=== PATIENT | male | born 1975 | race Caucasian/White ===

== ENCOUNTER 2021-05-01 12:12 | Outpatient (REF) | payer OTHER, SELFPAY | END 2021-05-01 12:13 | disposition home or self-care (01) | LOC: HO.LAB 12:12 | PROVIDERS: Visit Provider Internal Medicine | DX: Z20.822 Contact with and (suspected) exposure to COVID-19 (principal) | CPT/HCPCS: C9803; U0003; U0005 ==

== ENCOUNTER 2023-02-13 08:47 | Outpatient (AMB) | payer OTHER, SELFPAY ==
--- NOTE | 2023-02-13 08:57 | A.OFFVIS_ITS ---
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 States he has been having back pain (T-spine to L-spine) since November 08 2022. 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 Seen at [facility] the following where an MRI was done and was told he has O.A and 5 pinch nerves in his back. States he has constant radiating pain down his leg especially with prolong sitting. States he is pending a call from therapy to schedule appointment with [facility]. 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 He prefers to stand due to his back pain. Reviewed notes from - Now pain is mid lower back, goes to right side to thigh and groin. Feels like burning sensation of inner thigh. Feels numb on groin area. Occasionally goes to knee, and sometimes numbness to big toe. Constant throughout the day. Has not noticed foot drop. Feels slight weakness on right thigh, feels like it will give out. Poor balance/stability. Treatment done so far: NSAIDs, pain medications therapy - Had one evaluation of PT - pending referral/call. This is a WC. Off work currently, out until 03/03/23. Was following podiatry Dr. Bhardwaj for right foot pain, for bone spur, pending surgery. This is a separate issue. 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 Although he appeared very uncomfortable. He preferred to stand up due to pain while seated. Patient was appropriately conversant and oriented. Good historian. MSK: No specific abnormalities found on inspection of the spine and all extremities. Diffusely tender on right SI joint and right lumbar paraspinals. No tenderness over GT. No tenderness over spinous processes.. Lumbar ROM was full despite pain. Bilateral hip, knee and ankle ROM WNL. No ligamentous laxity or crepitance. No increased effusion. Positive slump sit under right. FABERE test deferred due to pain. Give way weakness 4/5 on right lower extremity due to pain. No increased tone noted. Neurological: Neurologic examination of the upper and lower extremities was nonfocal with intact sensation, muscle stretch reflexes and without focal motor deficits except for give-way weakness under right lower extremity and question right footdrop (difficulty extending right big toe as compared to left but with pain). Menchaca?s negative bilaterally. Babinski was down going bilaterally. Clonus was negative. Gait is antalgic without loss of balance. 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 Co uld be from acute disc herniation. I agree with starting physical therapy. We would need to get the results of his MRI to confirm any disc herniation and/or level of nerve root impingement. He may benefit from injection which I explained would most likely be under pain management. He had some concerns about being diabetic but says his diabetes is well controlled. He will get the MRI results from [facility] and have it faxed loss. The soon as I see the MRI results, I will confirm what level of epidural injection I recommend, to be done under pain management. For now continue off work. Will re-evaluate at the end of the month if he can return to work or not. Hopefully by then, injection has been done. Assessment and plan discussed with patient, and patient was agreeable. All questions were answered thoroughly. Nona Huff MD, COLLETTE Board Certified, [place] [employer] and Rehabilitation (ABPMR) Board Certified, [place] [employer] Electro[employer]ostic [employer] (ABEM) Total of 45 minutes spent today including chart review, results review, history taking, physical examination, discussion of assessment and plan, and coordination of care. As of 02/14/23, we have not received fax of previous MRI report. Staff called patient and he said he's getting new lumbar MRI next week. He was advised to bring us a CD of the report. I will update referral to pain management (for level of epidural) once we receive new MRI. 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
[2023-02-13 09:09] VITALS: BMI 28.3
== END 2023-02-13 09:30 | disposition home or self-care (01) ==
PROVIDERS: PCP Internal Medicine; Visit Provider Physical Medicine & Rehabilitation
DX: M51.36 Other intervertebral disc degeneration, lumbar region (principal); M51.26 Other intervertebral disc displacement, lumbar region; M54.16 Radiculopathy, lumbar region
CPT/HCPCS: 99204

== ENCOUNTER → 2023-02-13 08:47 | Outpatient (BNVA) | payer OTHER, SELFPAY | PROVIDERS: PCP Internal Medicine; Visit Provider Physical Medicine & Rehabilitation ==

== ENCOUNTER 2023-02-27 11:09 | Outpatient (AMB) | payer OTHER, SELFPAY ==
--- NOTE | 2023-02-27 11:28 | MHC.OFFVIS ---
Intake Vital Signs 02/27/23 11:29 Height 5 ft 10 in Weight 197 lb BMI 28.3 Intake Visit Reasons: OV-WC-Back pain-Pain management referral Intake Note: Garrett 47 yr old mahin presents today to discuss work restriction. 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 He is pending appt with pain management. Joiners Supervisor Required: Yes Allergies penicillin V Allergy (Unknown, Verified 02/27/23 11:37) other Medication List - Last Reconciled 02/27/23 by Nona Huff MD albuterol sulfate 90 mcg/actuation (Ventolin HFA) 2 puffs inhalation Q4-6H PRN atorvastatin 40 mg PO DAILY cyclobenzaprine 10 mg PO TID dulaglutide (Trulicity) 0.75 mg subcut QWEEK fluticasone propionate 110 mcg/actuation (Flovent HFA) 2 puffs inhalation BID glipizide ER 10 mg PO DAILY metformin 1,000 mg PO BID methocarbamol 750 mg PO TID naproxen 500 mg PO BID oxycodone 5 mg PO TID PRN HPI HPI Comments History of Present Illness Details He appears more comfortable today, able to sit for longer period. Describes pain as discomfort and burning, same distribution down to the right thigh and knee. He had a new MRI done in [place]. Reported a right L4-5 disc protrusion. I independently reviewed the films and there is a small on disc herniation. He also was seen by Dr. Sherman in [place], I believe who is a pain anesthesiologist. He has not done any injections. I have referred him to our Pain Management but still awaiting scheduled for epidural injection. Treatment done so far: NSAIDs, pain medications therapy - ongoing This is a WC. Off work currently, out until 03/03/23. Was following podiatry Dr. Bhardwaj for right foot pain, for bone spur, pending surgery. This is a separate issue. 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 Appeared more comfortable today. Patient was appropriately conversant and oriented. Good historian. MSK: No specific abnormalities found on inspection of the spine and all extremities. Not as tender today. Lumbar ROM was full despite pain. Bilateral hip, knee and ankle ROM WNL. No ligamentous laxity or crepitance. No increased effusion. Positive slump sit still positive on the right. FABERE test negative. 4+/5 bilateral lower extremity. Neurological: 4+/5 bilateral lower extremity strength. 1+ DTRs bilateral knees and ankles. Menchaca?s negative bilaterally. Babinski was down going bilaterally. Clonus was negative. Gait is improved, nonantalgic without loss of balance. Results Reviewed Results Reviewed: Ordering Physician: Mirlande Rayo Date of Service: 02/01/23 Procedure(s): CT lumbar spine wo IV con Accession Number(s): [id number] cc: Mirlande Rayo; Ute Wood PA-C~ EXAMINATION: CT LUMBAR SPINE WITHOUT CONTRAST CLINICAL INFORMATION: Acute on chronic low back pain. COMPARISON: None TECHNIQUE: Helical non-contrast CT images were obtained through the lumbar spine without contrast. Multiplanar reformats were rendered and reviewed. This CT examination was performed using dose optimization techniques as appropriate, variously including the following: *Automated exposure control *Adjustment of mA and/or kV according to patient size (this includes techniques or standardized protocols for targeted exams where dose is matched to indication/reason for exam; i.e. extremities or head) *Use of iterative reconstruction technique DLP: 451 mGy-cm FINDINGS: The lumbar vertebral bodies maintain normal heights and alignment. There is mild disc height loss at L5-S1. No fracture is seen. Multiple calculi are seen within the bilateral kidneys. There is no hydronephrosis. Minimal atheromatous changes are seen within the abdominal aorta. SPINAL LEVELS: L1-L2: No posterior disc abnormality. No spinal canal or neural foraminal stenosis. L2-L3: Mild disc bulging. No spinal canal or neural foraminal stenosis. L3-L4: Disc bulging. No spinal canal or neural foraminal stenosis. L4-L5: Disc bulging with mild narrowing of the left neural foramen. No spinal canal stenosis. L5-S1: Disc bulging with left annular calcification resulting in mild to moderate left neural foraminal stenosis. Mild right neural foraminal stenosis. No spinal canal stenosis. CT/CT lumbar spine wo IV con IMPRESSION: 1. No lumbar spine fracture or malalignment. Mild degenerative spondylosis without significant narrowing of the spinal canal. Neural foraminal stenosis appears mild to moderate on the left at L5-S1. 2. Incidentally noted bilateral nonobstructing renal calculi. 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 It does seem to be getting better with physical therapy. Still waiting for scheduling of epidural injection under pain management. He says he can now tolerate up to 20 minutes of sitting, 1 hour of standing and 45 minutes of walking. But he does not think he can do repetitive bending that is required at work. I have agreed to write him a work note for out of work for another 4 weeks or until injection done. Our goal is to get him back to work safely. Assessment and plan discussed with patient, and patient was agreeable. All questions were answered thoroughly. Total of 35 spent today including chart review, results review, history taking, physical examination, discussion of assessment and plan, and coordination of care. 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
[2023-02-27 11:29] VITALS: BMI 28.3
== END 2023-02-27 11:57 | disposition home or self-care (01) ==
PROVIDERS: PCP Internal Medicine; Visit Provider Physical Medicine & Rehabilitation
DX: M51.36 Other intervertebral disc degeneration, lumbar region (principal); M51.26 Other intervertebral disc displacement, lumbar region; M54.16 Radiculopathy, lumbar region; Z04.3 Encounter for examination and observation following other accident
CPT/HCPCS: 99214

== ENCOUNTER → 2023-02-27 11:09 | Outpatient (BNVA) | payer OTHER, SELFPAY | PROVIDERS: PCP Internal Medicine; Visit Provider Physical Medicine & Rehabilitation | DX: M51.36 Other intervertebral disc degeneration, lumbar region (principal); M51.26 Other intervertebral disc displacement, lumbar region; M54.16 Radiculopathy, lumbar region | CPT/HCPCS: 99212 ==

== ENCOUNTER 2023-04-29 06:08 | Outpatient (REF) | payer OTHER, SELFPAY | END 2023-04-29 06:09 | disposition home or self-care (01) | LOC: CF 06:08 | PROVIDERS: Visit Provider Anesthesiology | DX: Z13.89 Encounter for screening for other disorder (principal) ==

== ENCOUNTER 2025-02-28 12:44 | Outpatient (AMB) | payer OTHER, SELFPAY ==
--- NOTE | 2025-02-28 13:38 | MHC.AMNUTRGE ---
VS Expanded 02/28/25 13:39 03/08/25 18:09 Height 5 ft 10 in 5 ft 10 in Weight 188 lb 14.978 oz 189 lb BMI 27.1 27.1 Intake Visit Reasons: G1LK-oxarsgmal Allergies penicillin V Allergy (Unknown, Verified 02/27/23 11:37) other Nutrition Presentation Details: Pt presents for MNT for T2DM food frequency fruits: 0-1/d vex/wk fish: 0-1/wk dairy> 3/d beverages: water, juice, diet beverages Reports lack of meal planning a1c at 9% on November, Pt did not bring glucometer to this appt HFG-Epmxnyo-Hu.Jeor Equation Height: 5 ft 10 in Weight: 189 lb Resting Metabolic Rate: 1736.52 Calculated Activity Level: Sedentary Calories Needed to Maintain Weight: 3.82 Diagnosis Nutrition problem #1: food nutri know defi As related to (etiology) #1: diagnosis As evidenced by (sign/symptom) #1: knowledge deficit of diet and elevated HgbA1c PFSH Social History Current occupational status: employed 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 Assessment & Plan Assessment & Plan (1) Type 2 diabetes mellitus: Code(s): E11.9 - Type 2 diabetes mellitus without complications Category: Medical Plan: current wt: 86 kg (02/26 ) est kcal needs as per MSJ: 2100 est protein needs as per 1 g/kg BW: 90 est fluid needs as per 30 ml/kg BW: 2600 Recommended fiber > 12 g /day and gradually increase up to 25-28 g /day or as tolerated Rec sodium intake : less than 2300 mg/dl Nutrition topics discussed : Reviewed (R), Pt verbalized understanding (V) , not applicable (N/A) R, : Healthy Plate Method Concept: R, : Carbohydrates: food sources of carbohydrates, relationship of carbohydrates to blood glucose, fatty liver GI health. Recommended total amount of carbohydrates per meals and snack. Differences between simple carbohydrates and complex carbohydrates R, V, N/A: Lean protein foods including vegan , vegetarian sources of protein. Benefits of protein (including but not limited to healing, nutritional value , benefits in weight loss, glucose control R, V, N/A: Fats : Source of fats, benefits of fats. Difference between saturated and unsaturated fats. Saturated fats and its contribution to inflammation R, V, N/A: Fiber: food sources and role of fiber in the diet (including but not limited to its role as a prebiotic, benefits in constipation, role in IBS , role in glucose control and cholesterol level) R, : Hydration: role of hydration and prevention of dehydration or over hydration. Foods and water content. R, V, N/A: Vitamins and Minerals in foods and supplements R, V, N/A: Interpreting food labels, including serving size, macronutrients, vitamins, minerals, allergens, ingredient list , % daily value Patient Instructions: Monitor blood sugar fasting and 2 hours after a meal work on reducing total carb per meal to less than 90 g following healthy plate method and less than 20 g carb a snack , limit to 2 a day Choose no added sugar foods and have water with meals and snacks Coding Level of Care Code Nutr Indiv Intake (08186) Diagnoses Type 2 diabetes mellitus E11.9 Time Spent (min) 30
[2025-02-28 13:39] VITALS: BMI 27.1
--- OUTSIDE RECORDS SUMMARY | 2025-02-28 16:09 | XMS_ITS | Clinical Summary ---
Author Organization [facility] Address [address] [place] [phone] Phone Care Team Providers Care Executive Director Sheltered Workshop Name Role Phone Floyd Mark MD Primary Care Provider Allergies Active Allergy Reactions Criticality Noted Date Comments Aspirin 04/19/2014 Reaction not mentioned Penicillins Rash 03/16/2014 Shellfish Containing Products 04/19/2014 Reaction not mentioned Medications blood sugar diagnostic (FreeStyle Lite Strips) test strip USE TO CHECK BLOOD SUGAR 3 TIMES DAILY 024 Active blood-glucose meter,continuous (FreeStyle Yuan 3 Chicken) misc 1 Device by Does not apply route See Admin Instructions. Active blood-glucose sensor (FreeStyle Yuan 3 Plus Sensor) device 1 Applicator by Does not apply route every 14 days. Active sertraline (ZOLOFT) 50 mg tablet Take 1 Tablet by mouth daily. Active pen needle, diabetic (Insupen Pen Needle) 32 gauge x 5/32 needle 1 Stick by Does not apply route daily. Active FREESTYLE LANCETS MISC Use to test blood sugars TID Active atorvastatin (LIPITOR) 40 mg tablet Take 1 tablet (40 mg total) by mouth 1 (one) time each day. 90 tablet 1 025 Active albuterol 2.5 mg /3 mL (0.083 %) nebulizer solution Take 1 Vial by nebulization every 4 hours as needed for Wheezing, Shortness of Breath or Cough. 75 mL 1 025 Active ezetimibe (ZETIA) 10 mg tablet Take 1 tablet (10 mg total) by mouth 1 (one) time each day. 90 tablet 1 Active metFORMIN (GLUCOPHAGE) 1,000 mg tablet Take 1 Tablet by mouth 2 times daily (with meals). 180 tablet 1 025 Active pioglitazone (Actos) 15 mg tablet Take 1 tablet (15 mg total) by mouth 1 (one) time each day. 90 each 1 025 Active insulin glargine (Lantus Solostar U-100 Insulin) 100 unit/mL (3 mL) injection pen Inject 20 Units into the skin daily. 15 mL 1 025 Active albuterol HFA (Ventolin HFA) 90 mcg/actuation inhalerIndication s:Mild intermittent asthma without complication INHALE 2 PUFFS INTO THE LUNGS EVERY 4 HOURS NEEDED FOR COUGH, WHEEZING OR SHORTNESS OF BREATH. 18 each 1 025 Active bisacodyL (DULCOLAX) 5 mg EC tablet Take 2 tablets by mouth right before beginning bowel prep. See instructions provided by the office 2 tablet 025 Active polyethylene glycol (Golytely) 236-22.74-6.74 -5.86 gram solution Take 4L by mouth once for one dose. May substitue any PEG. Starting at 2PM the day before your procedure drink 1 8oz glasses at your own pace until you complete half of the gallon. Finish 2nd half of the gallon at 8PM. 4000 mL 025 Active Mounjaro 5 mg/0.5 mL injectionIndicati ons:Diabetes mellitus type 2 with neurological manifestations ([facility] V24, [facility] V28),Type 2 diabetes mellitus with hyperglycemia, without long-term current use of insulin ([facility] V24, [facility] V28) Inject 0.5 mL (5 mg total) under the skin every 7 (seven) days. This will replace ozempic. Please fill after 12/03 2 mL 025 Active celecoxib (CeleBREX) 200 mg capsule TAKE 1 CAPSULE BY MOUTH 2 TIMES DAILY NEEDED FOR PAIN. 180 capsule 1 025 Active polyethylene glycol (Golytely) 236-22.74-6.74 -5.86 gram solution Take 4L by mouth once for one dose. May substitue any PEG. Starting at 2PM the day before your procedure drink 1 8oz glasses at your own pace until you complete half of the gallon. Finish 2nd half of the gallon at 8PM. 4000 mL Active bisacodyL (DULCOLAX) 5 mg EC tablet Take 2 tablets by mouth right before beginning bowel prep. See instructions provided by the office 2 tablet Active celecoxib (CeleBREX) 200 mg capsule TAKE 1 CAPSULE BY MOUTH 2 TIMES DAILY NEEDED FOR PAIN. 180 capsule 1 025 2024 Discontinued tirzepatide (Mounjaro) 5 mg/0.5 mL injection Inject 0.5 mL (5 mg total) under the skin every 7 (seven) days. This will replace ozempic. Please fill after 12/03 2 mL 1 025 2024 Discontinued(R eorder) Ozempic 1 mg/dose (4 mg/3 mL) injection penIndications:Di abetes mellitus type 2 with neurological manifestations ([facility] V24, [facility] V28) INJECT 1 MG UNDER THE SKIN EVERY 7 (SEVEN) DAYS. 12 mL 3 025 2024 Discontinued Ozempic 2 mg/dose (8 mg/3 mL) injection penIndications:Di abetes mellitus type 2 with neurological manifestations ([facility] V24, [facility] V28),Type 2 diabetes mellitus with hyperglycemia, without long-term current use of insulin ([facility] V24, [facility] V28) Inject 2 mg under the skin every 7 (seven) days. 3 mL 3 025 2024 Discontinued Active Problems Problem Noted Date Diagnosed Date Posterior tibial tendon dysf unction (PTTD) of right lower extremity 09/08/2024 Arthritis of right ankle 09/08/2024 Asthma 03/24/2024 Chronic neck pain 03/24/2024 Lipoma of right upper extremity 10/21/2023 Diabetes mellitus type 2 wit h neurological manifestations ([facility] V24, [facility] V28) 09/24/2023 Intervertebral disc disease 11/28/2022 Palpitations 05/09/2022 Diabetic polyneuropathy asso ciated with type 2 diabetes mellitus ([facility] V24, [facility] V28) 02/16/2019 Fatty liver 04/13/2018 Cervical radiculopathy 06/22/2016 Overview (03/24/2024): Last Assessment & Plan: This exam was done with the assistance of a gutter installer from [facility] [employer], Teresa #[id number]. Mr. Castellon has been attending physical therapy which included heat, electric stim and massage but has not noticed a change in his symptoms. He has persistent left paraspinal neck pain extending up to the occiput, worsened by movement and notes that when turning his head, he can have symptoms of pain, tingling and cramping down the left arm. This will typically go to the second and third digits which are occasionally cold and numb. When his hand is flared up, he is unable to open jars. On exam, there is no step-off or deformity of the cervical spine. He is tender along the left suboccipital area and down the paraspinal muscles. Cervical rotation is 75 degrees to the left, 30 degrees to the right. 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 We discussed that his x-rays from last month did not show any instability and that the hardware from his prior fusion in 2016 is stable. He does not have overt weakness. I reassured the PT slip with recommendations to change his treatment plan and gave him a short course of Flexeril. If he still does not improve, we will order a cervical spine MRI. Pituitary macroadenoma ([facility] V24, [facility] V28 ) 04/16/2016 Overview (03/24/2024): Followed by Dr. 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 Overview (03/24/2024): Chronic/ seen by ortho GERD (gastroesophageal reflux disease) 4 MDD (major depressive disorder) 03/16/2014 Encounters Date Type Department Care Team Description 02/10/2025 Telephone Adult Medicine [address] [phone] Floyd Mark MD 02/02/2025 1:15 PM EDT Office Visit Adult Medicine [address] [phone] Floyd Mark MD Diabetes mellitus type 2 with neurological manifestations ([facility] V24, [facility] V28) (Primary Dx); Need for prophylactic vaccination and inoculation against influenza; Type 2 diabetes mellitus with hyperglycemia, without long-term current use of insulin ([facility] V24, [facility] V28); Mild intermittent asthma without complication; Pure hypercholesterolemia; Recurrent major depressive disorder, in full remission ([facility] V24); Elevated blood pressure reading 01/26/2025 Telephone Adult Medicine [address] [phone] Floyd Mark MD 12/23/2024 1:00 PM EDT Office Visit Orthopedic Surgery [facility] [address] [phone] Syed Bhardwaj, DPM Posterior tibial tendon dysfunction (PTTD) of right lower extremity (Primary Dx); Arthritis of right ankle; Diabetic mononeuropathy simplex ([facility] V24, [facility] V28); Post-operative state 12/23/2024 Telephone Gastroenterology [facility] 175 [facility] [address] [phone] Marques Burgos DO 12/03/2024 Telephone Orthopedic Surgery [facility] [address] [phone] Agueda Espinal MA 12/02/2024 Telephone Adult Medicine [address] [phone] Floyd Mark MD 11/30/2024 10:00 AM EDT Consult Adult Medicine [address] [phone] Floyd Mark MD Preop examination (Primary Dx); Diabetic polyneuropathy associated with type 2 diabetes mellitus ([facility] V24, [facility] V28) 11/29/2024 Telephone Orthopedic Surgery [address] [phone] Syed Bhardwaj DPM from Last 3 Months Immunizations Immunization Administration Dates Next Due Influenza Quadravalent, MDCK , 0.5ml, preservative free (Flucelvax) 6mo and older 02/24/2023,05/13/2022,03/31/2018 Influenza Quadravalent, MDCK , 0.5ml, with preservative (Flucelvax) 6mo and older 03/13/2017 Influenza trivalent, 0.5mL, preservative free (Fluarix; FluLaval; Fluzone) ages 6mo and older (Afluria) 3 years and older 02/17/2024,02/18/2019,04/16/2016,04/06,02/09/2014 Influenza trivalent, MDCK, 0 .5mL, preservative free (Flucelvax) 6mo and older 02/02/2025 Influenza, Unspecified 03/02/2014 Pfizer SARS-CoV-2 COVID-19, mRNA, LNP-S, preservative free 08/29/2020,08/08/2020 Pneumococcal polysaccharide 23 valent (Pneumovax 23) 2yo and older 07/10/2013 Td Tetanus diptheria (Tdvax) 7yo and older 02/17/2024 Tdap Tetanus diptheria acell ular pertussis (Boostrix; Adacel) 7yo and older 01/08/2012 Surgical History Surgery Date Site/Laterality Comments CHOLECYSTECTOMY PROCEDURE: HISTORICAL CHOLECYSTECTOMY OTHER SURGICAL HISTORY PROCEDURE: HISTORY OTHER; COMMENT: Cervical spine surgery with fusion Dr. Modi 2015 OTHER SURGICAL HISTORY 04/10/2017 Right PROCEDURE: MO ARTHRD W/TDN LNGTH&ADVMNT TARSL NVCLR-CUNEIFOR; COMMENT: excision of os navicularis and reattachment of the posterior tibial tendon. OTHER SURGICAL HISTORY 11/19/2017 PROCEDURE: HISTORICAL PITUITARY SURGERY; COMMENT: Dr. Modi Medical History Medical History Date Comments Asthma DX:Asthma Chronic neck pain DX:Chronic nec k pain History of hepatitis C 04/19/2014 DX:Histor y of hepatitis C; COMMENT: Viral load undetectable after treatment ? 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 (CMS/HCC V24, CMS/HCC V28) 09/24/2023 DX: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 ([facility]) Family History Medical History Relation Name Comments Diabetes Brother 1 Diabetes Brother 2 Stroke Father kidney disease Breast cancer Mother DM No Known Problems Sister 1 No Known Problems Sister 2 No Known Problems Sister 3 Blindness Neg Hx Cataracts Neg Hx Glaucoma Neg Hx Macular degeneration Neg Hx Strabismus Neg Hx Relation Name Status Comments Brother 1 Alive Brother 2 Alive Father Mother Alive Sister 1 Alive Sister 2 Alive Sister 3 Alive Social History Tobacco Use Types Packs/Day Years Used Date Smoking Tobacco: Some Days Cigarettes 0.3 25.8 Started: 12/24/1991; Last attempted to quit: 10/03/2017 Smokeless Tobacco: Never Tobacco Cessation:Ready to Q uit: Not Asked; Counseling Given: Not Answered Alcohol Use Standard Drinks/Week Comments Yes 0 (1 standard drink = 0.6 oz pur e alcohol) Housing Instability Answer Date Recorde d Are you worried that in the next 2 months you may not have stable housing? No 11/30/2024 Food Access & Nutrition Answer Date Rec orded Do you have access to a vari ety of food including fruits and vegetables? Yes 11/30/2024 Access to Healthcare Answer Date Record ed Within the last 3 months, ho w many times did you visit the emergency department for your medical care? 0 11/30/2024 Health Literacy Answer Date Recorded How often do you need to hav e someone help you when you read instructions, pamphlets, or other written material from your doctor or pharmacy? Never 11/30/2024 Caregiver: How often do you need to have someone help you when you read instructions, pamphlets, or other written material from your doctor or pharmacy? Not on file 11/30/2024 Financial Risk Answer Date Recorded How hard is it for you to pa y for the very basics like food, housing, medical care, and air conditioning / heating? Not very hard 11/30/2024 Transportation Answer Date Recorded Has the lack of transportati on kept you from meetings, work, or from getting things needed for daily living? No Has the lack of transportati on kept you from medical appointments or from getting medications? No 11/30/2024 Social Isolation Answer Date Recorded How often do you feel lonely or isolated from th ose around you? Never 11/30/2024 Food Risk Answer Date Recorded Within the past 12 months we worried whether our food would run out before we got money to buy more. Never true 11/30/2024 Within the past 12 months th e food we bought just didn't last and we didn't have money to get more. Never true 11/30/2024 Dependent Care Answer Date Recorded Do you need help finding or paying for care for your loved ones. For example, child welfare worker or elderly care for an older adult? No 11/30/2024 Education Answer Date Recorded Do you think completing more education or training, like finishing a GED, going to college, or learning a trade, would be helpful for you? No 11/30/2024 Employment and Income Answer Date Recor ded During the last four weeks, have you been actively looking for work? No 11/30/2024 Living Situation Answer Date Recorded What is your living situation? Unrecognized valu e 11/30/2024 Sex and Gender Information Value Date Recorded Sex Assigned at Male 10/11/2024 3:17 PM EDT Legal Sex Male 11:37 PM EST Gender Identity Male 10/11/2024 3:17 PM EDT Sexual Orientation Straight 10/11/2024 3: 17 PM EDT Obstetrics History Last Filed Vital Signs Vital Sign Reading Time Taken Comments Blood Pressure 140/80 02/02/2025 1:18 PM EDT Pulse 78 02/02/2025 1:17 PM EDT Temperature 36.2 C (97.2 F) 02/02/2025 1:17 PM EDT Respiratory Rate 15 02/02/2025 1:17 PM EDT Oxygen Saturation 99% 02/02/2025 1:17 PM EDT Inhaled Oxygen Concentration - - Weight 86.2 kg (190 lb) 02/02/2025 1:17 PM EDT Height 177.8 cm (5' 10 ) 02/02/2025 1:17 PM EDT Body Mass Index 27.26 02/02/2025 1:17 PM EDT Plan of Treatment Upcoming Encounters Date Type Department Care Team (Late st Contact Info) Description 03/08/2025 2:30 PM EST Office Visit Adult Medicine [facility] [address] [place] [phone] Darling Brown PA [address] [place], [place] 03/11/2025 8:00 AM EST Appointment [facility] Endoscopy [address] [place] [phone] Marques Burgos, [facility] [place] [phone] Scheduled Procedures Name Priority Associated Diagnoses Date/Ti me ARTHRODESIS SUBTALAR Posterior tibial tendon dysfunction (PTTD) of right lower extremity Arthritis of right ankle Health Maintenance Due Date Last Done Comments Colorectal Cancer Screening: Colonoscopy 1976 Hepatitis B Vaccines (1 of 3 - 19+ 3-dose series) 1995 Pneumococcal Vaccine: Pediatrics (0 to 5 Years) and At-Risk Patients (6 to 49 Years) (2 of 2 - PCV) 07/10/2014 07/10/2013 HIV Screening 04/13/2022 COVID-19 Vaccine ( season) 2025 05/08/2021, 08/29/2020, 08/08/2020 Diabetes: Blood Sugar Control Test (HGBA1C) 06/03/2025 12/01/2024, 08/11/2024, 10/21/2023, Additional history exists Diabetes: Annual Retina Eye Exam 07/05/2025 07/05/2024, 07/01/2023 Diabetes: Annual Foot Exam 08/09/2025 08/09/2024, Social Influencers of Health Screening 11/30/2025 11/30/2024 Diabetes: Annual Urine Albumin-Creatinine Ratio (uACR) 12/01/2025 12/01/2024, 10/21/2023 Diabetes: Annual GFR (Glomerular Filtration Rate) 12/01/2025 12/01/2024, 10/21/2023, 10/21/2023 Cholesterol Screening (Lipid Panel) 12/01/2029 12/01/2024, 10/21/2023, 10/21/2023 DTaP,Tdap,and Td Vaccines (3 - Td or Tdap) 02/16/2034 02/17/2024, 01/08/2012 RSV Immunization Adult Patients (1 - 1-dose 75+ series) 2051 Hepatitis C Screening Completed 04/22/2014 Depression Screening Completed 11/30/2024, 02/17/20 Influenza Vaccine Completed 02/02/2025, , 02/24/2023, Additional history exists HIB Vaccines Aged Out No longer eligi ble based on patient's age to complete this topic HPV Vaccines Aged Out No longer eligi ble based on patient's age to complete this topic Hepatitis A Vaccines Aged Out No long er eligible based on patient's age to complete this topic IPV Vaccines Aged Out No longer eligi ble based on patient's age to complete this topic MMR Vaccines Aged Out No longer eligi ble based on patient's age to complete this topic Meningococcal ACWY Vaccine Aged Out N o longer eligible based on patient's age to complete this topic Meningococcal B Vaccine Aged Out No l onger eligible based on patient's age to complete this topic RSV Immunization Patients Under 20 months Aged Out No longer eligible based on patient's age to complete this topic Varicella Vaccines Aged Out No longer eligible based on patient's age to complete this topic Goals Goal Patient Goal Type Associated Problems Recent Progress Patient-Stated? Author be ready for surgery General Yes Chidi Cherry, PT STG for PT eval 10/11/24 General No Chidi Cherry, PT Note: Pt will be able to demonstrate safe proper use of a AD in NWB locomotion and transfers Autogenerated Goal Care Plan Autogenerated Problem No Allen Berman Procedures Procedure Name Priority Date/Time Associated Diagnosis Comments CBC WITH AUTO DIFFERENTIAL Routine 12/01/2024 10:20 AM EDT Preop examination Diabetic polyneuropathy associated with type 2 diabetes mellitus (CMS/HCC V24, CMS/HCC V28) CBC AND DIFFERENTIAL Routine 12/01/2024 10:20 AM EDT Preop examination Diabetic polyneuropathy associated with type 2 diabetes mellitus (CMS/HCC V24, CMS/HCC V28) HEMOGLOBIN A1C Routine 12/01/2024 10:20 AM EDT Preop examination Diabetic polyneuropathy associated with type 2 diabetes mellitus (CMS/HCC V24, CMS/HCC V28) LIPID PANEL WITH REFLEX TO DIRECT LDL Routine 12/01/2024 10:20 AM EDT Preop examination Diabetic polyneuropathy associated with type 2 diabetes mellitus (CMS/HCC V24, CMS/HCC V28) COMPREHENSIVE METABOLIC PANEL Routine 12/01/2024 10:20 AM EDT Preop examination Diabetic polyneuropathy associated with type 2 diabetes mellitus (CMS/HCC V24, CMS/HCC V28) MICROALBUMIN CREATININE URINE RATIO Routine 12/01/2024 10:20 AM EDT Preop examination Diabetic polyneuropathy associated with type 2 diabetes mellitus (CMS/HCC V24, CMS/HCC V28) EXTERNAL DIABETIC RETINA EYE EXAM 07/05/2024 DEPRESSION SCREENING Routine 02/17/2024 DIABETES FOOT EXAM Routine 06/09/2023 HEPATITIS C SCREENING Routine 04/22/2014 from Last 3 Months or Most Recently Relevant to Health Maintenance Results * (ABNORMAL) Lipid panel with reflex to direct LDL (12/01/2024 10:20 AM EDT) Cholesterol 193 0 - 200 mg/dL LAB CHEMISTRY METHOD 12/01/2024 12:20 PM EDT [facility] Triglycerides 51 0 - 150 mg/dL LAB CHEMISTRY METHOD 12/01/2024 12:20 PM EDT [facility] HDL 52 >=40 mg/dL LAB CHEMISTRY METHOD 12/01/2024 12:20 PM EDT [facility] LDL Calculated 131(H) 0 - 100 mg/dL LAB CHEMISTRY METHOD 12/01/2024 12:20 PM EDT [facility] VLDL Cholesterol Aubrey 10.2 mg/dL LAB CHEMISTRY METHOD 12/01/2024 12:20 PM EDT [facility] Non HDL Chol. (LDL+VLDL) 141 <145 mg/dL LAB CHEMISTRY METHOD 12/01/2024 12:20 PM EDT [facility] Chol/HDL Ratio 3.7 0.0 - 4.4 LAB CHEMISTRY METHOD 12/01/2024 12:20 PM EDT [facility] Blood Venous blood specimen / Unknown Venipuncture / Unknown 12/01/2024 10:20 AM EDT 12/01/2024 10:20 AM EDT Floyd Mark MD LAB BLOOD ORDERABLES F inal Result [facility] [address] [place] [address], * (ABNORMAL) CBC auto differential (12/01/2024 10:20 AM EDT) WBC 8.6 4.8 - 10.8 K/mcL LAB HEMETOLOGY METHOD 12/01/2024 12:33 PM EDT [facility] RBC 5.10 4.50 - 5.50 M[facility] LAB HEMETOLOGY METHOD 12/01/2024 12:33 PM EDT [facility] Hemoglobin 16.0 13.5 - 17.5 g/dL LAB HEMETOLOGY METHOD 12/01/2024 12:33 PM EDT [facility] Hematocrit 47.5 42.0 - 54.0 % LAB HEMETOLOGY METHOD 12/01/2024 12:33 PM EDT [facility] MCV 92.6 79.0 - 98.0 FL LAB HEMETOLOGY METHOD 12/01/2024 12:33 PM EDT [facility] MCH 31.2 27.0 - 32.0 pcg LAB HEMETOLOGY METHOD 12/01/2024 12:33 PM EDT [facility] MCHC 33.7 32.0 - 37.0 g/dL LAB HEMETOLOGY METHOD [facility]01[facility]24 [facility] RDW 11.9 11.0 - 15.0 % LAB HEMETOLOGY METHOD 12/01/2024 12:33 PM EDT [facility] Platelets 210 130 - 400 K/mcL LAB HEMETOLOGY METHOD 12/01/2024 12:33 PM EDT [facility] MPV 11.5(H) 7.0 - 11.0 FL LAB HEMETOLOGY METHOD [facility]/01[facility]24 [facility] NRBC 0.0 <1.0 % LAB HEMETOLOGY METHOD 12/01/2024 12:33 PM EDT [facility] NRBC Absolute 0.00 <0.10 K/mcL LAB HEMETOLOGY METHOD 12/01/2024 12:33 PM EDT [facility] Neutrophils Relative 48.3 % LAB HEMETOLOGY METHOD 12/01[facility]2024 [facility] Lymphocytes Relative 36.5 % LAB HEMETOLOGY METHOD 12/01/2024 12:33 PM EDT [facility] Monocytes Relative 6.1 % LAB HEMETOLOGY METHOD 12/01/2024 12:33 PM EDT [facility] Eosinophils Relative 7.7 % LAB HEMETOLOGY METHOD 12/01/2024 12:33 PM EDT [facility] Basophils Relative 0.8 % LAB HEMETOLOGY METHOD 12/01/2024 12:33 PM EDT [facility] Immature Granulocytes Relative 0.6 % LAB HEMETOLOGY METHOD 12/01/2024 12:33 PM EDT [facility] Neutrophils Absolute 4.13 1.50 - 7.00 K/mcL LAB HEMETOLOGY METHOD 12/01/2024 12:33 PM EDT [facility] Lymphocytes Absolute 3.12 1.00 - 5.00 K/mcL LAB HEMETOLOGY METHOD 12/01/2024 12:33 PM EDT [facility] Monocytes Absolute 0.52 0.20 - 1.00 K/mcL LAB HEMETOLOGY METHOD 12/01/2024 12:33 PM EDT [facility] Eosinophils Absolute 0.66(H) 0.00 - 0.50 K/mcL LAB HEMETOLOGY METHOD 12/01/2024 12:33 PM EDT [facility] Basophils Absolute 0.07 0.00 - 0.20 K/mcL LAB HEMETOLOGY METHOD 12/01/2024 12:33 PM EDT [facility] Immature Granulocytes Absolute 0.05(H) 0.00 - 0.03 K/mcL LAB HEMETOLOGY METHOD 12/01/2024 12:33 PM EDT [facility] Blood Venous blood specimen / Unknown Venipuncture / Unknown 12/01/2024 10:20 AM EDT 12/01/2024 10:20 AM EDT us Floyd Mark MD LAB BLOOD ORDERABLES F inal Result [facility] [address] [place] [address], [place] [phone] * Microalbumin creatinine urine ratio (12/01/2024 10:20 AM EDT) Creatinine, Urine 200.0 mg/dL LAB CHEMISTRY METHOD 12/01/2024 1:51 PM EDT [facility] Microalb, Ur 8.5 0.0 - 29.0 mg/L LAB CHEMISTRY METHOD 12/01/2024 1:51 PM EDT [facility] Microalb/Creat Ratio 4 <30 mg/g creat LAB CHEMISTRY METHOD 12/01/2024 1:51 PM EDT [facility] Urine Urine specimen obtained by clean catch procedure / Unknown Non-blood Collection / Unknown 12/01/2024 10:20 AM EDT 12/01/2024 10:20 AM EDT us Floyd Mark MD LAB URINE ORDERABLES F inal Result [facility] [address] [place] [address], [place] [phone] * (ABNORMAL) Hemoglobin A1c (12/01/2024 10:20 AM EDT) Hemoglobin A1C 9.0(H) <6.5 % LAB CHEMISTRY METHOD 12/01/2024 6:29 PM EDT [facility] Mean Bld Glu Estim. 212 mg/dL LAB CHEMISTRY METHOD 12/01/2024 6:29 PM EDT [facility] Blood Venous blood specimen / Unknown Venipuncture / Unknown 12/01/2024 10:20 AM EDT 12/01/2024 10:20 AM EDT us Floyd Mark MD LAB BLOOD ORDERABLES F inal Result [facility] [address] [place] [address], [place] [phone] * (ABNORMAL) Comprehensive metabolic panel (12/01/2024 10:20 AM EDT) Sodium 136 133 - 145 mmol/L LAB CHEMISTRY METHOD 12/01/2024 12:20 PM EDT [facility] Potassium 4.0 3.5 - 5.5 mmol/L LAB CHEMISTRY METHOD 12/01/2024 12:20 PM [facility] Chloride 103 96 - 110 mmol/L LAB CHEMISTRY METHOD 12/01/2024 12:20 PM [facility] CO2 30 21 - 32 mmol/L LAB CHEMISTRY METHOD 12/01/2024 12:20 PM [facility] Anion Gap 3 3 - 11 LAB CHEMISTRY METHOD 12/01/2024 12:20 PM [facility] Glucose 208(H) 70 - 100 mg/dL LAB CHEMISTRY METHOD 12/01/2024 12:20 PM [facility] BUN 16 5 - 25 mg/dL LAB CHEMISTRY METHOD 12/01/2024 12:20 PM [facility] Creatinine 1.08 0.70 - 1.30 mg/dL LAB CHEMISTRY METHOD 12/01/2024 12:20 PM [facility] eGFR 85 >=60 mL/min/1. 73m2 LAB CHEMISTRY METHOD 12/01/2024 12:20 PM [facility] Comment:Calculation based on the Chronic Kidney Disease Epidemiology Collaboration (CKD-EPI) equation refit without adjustment for race. BUN/Creatinine Ratio 14.8 LAB CHEMISTRY METHOD 12/01/2024 12:20 PM [facility] Calcium 9.3 8.5 - 10.5 mg/dL LAB CHEMISTRY METHOD 12/01/2024 12:20 PM [facility] AST (SGOT) 9(L) 10 - 42 unit/L LAB CHEMISTRY METHOD 12/01/2024 12:20 PM EDT [facility] ALT (SGPT) 33 10 - 60 unit/L LAB CHEMISTRY METHOD 12/01/2024 12:20 PM EDT [facility] Alkaline Phosphatase 73 42 - 121 unit/L LAB CHEMISTRY METHOD 12/01/2024 12:20 PM EDT [facility] Total Protein 7.6 6.0 - 8.0 g/dL LAB CHEMISTRY METHOD 12/01/2024 12:20 PM EDT [facility] Albumin 4.1 3.2 - 5.0 g/dL LAB CHEMISTRY METHOD 12/01[facility]24 [facility] Total Bilirubin 0.8 0.0 - 1.4 mg/dL LAB CHEMISTRY METHOD 12/01/2024 12:20 PM T [facility] Blood Venous blood specimen / Unknown Venipuncture / Unknown 12/01/2024 10:20 AM EDT 12/01/2024 10:20 AM EDT Floyd Mark MD LAB BLOOD ORDERABLES F inal Result [facility] [address] [place] [address], * External Diabetic Retina Eye Exam Report (07/05/2024) Anatomical Region Laterality Modality Ultrasound Provider [facility] US PROCEDURES Final Result * Depression Screening (02/17/2024) Depression Screening Abstracted Historical Provider HEALTH MAINTENANCE Final Result * Diabetes Foot Exam (06/09/2023) Diabetes: Annual Foot Exam Abstracted Historical Provider HEALTH MAINTENANCE Final Result * Hepatitis C Screening (04/22/2014) Hepatitis C Screening abstracted us Historical Provider HEALTH MAINTENANCE Final Result from Last 3 Months or Most Recently Relevant to Health Maintenance Additional Health Concerns Active Problems Noted Date Diagnosed Date Autogenerated Problem 02/10/2025 Insurance [facility] [employer] PLAN Advance Directives Documents on File Type Date Recorded Patient Team Physician Expl anation Health Care Decision (hx) 10/22/2017 AD ESPINO DIRECTIVE Health Care Decision (hx) 10/22/2017 AD ESPINO DIRECTIVE Health Care Decision (hx) 10/22/2017 AD ESPINO DIRECTIVE Health Care Decision (hx) 10/22/2017 AD ESPINO DIRECTIVE Health Care Decision (hx) 10/22/2017 AD ESPINO DIRECTIVE Health Care Decision (hx) 10/22/2017 AD ESPINO DIRECTIVE Health Care Decision (hx) 10/22/2017 AD ESPINO DIRECTIVE Health Care Decision (hx) 10/22/2017 AD ESPINO DIRECTIVE Health Care Decision (hx) 10/22/2017 AD ESPINO DIRECTIVE Health Care Decision (hx) 10/22/2017 AD ESPINO DIRECTIVE Health Care Decision (hx) 10/22/2017 AD ESPINO DIRECTIVE Health Care Decision (hx) 10/22/2017 AD ESPINO DIRECTIVE Health Care Decision (hx) 10/22/2017 AD ESPINO DIRECTIVE Health Care Decision (hx) 10/22/2017 AD ESPINO DIRECTIVE Health Care Decision (hx) 10/22/2017 AD ESPINO DIRECTIVE Health Care Decision (hx) 10/22/2017 AD ESPINO DIRECTIVE Health Care Decision (hx) 10/22/2017 AD ESPINO DIRECTIVE Health Care Decision (hx) 10/22/2017 AD ESPINO DIRECTIVE Health Care Decision (hx) 10/22/2017 AD ESPINO DIRECTIVE Health Care Decision (hx) 10/22/2017 AD ESPINO DIRECTIVE Health Care Decision (hx) 10/22/2017 AD ESPINO DIRECTIVE Health Care Decision (hx) 10/22/2017 AD ESPINO DIRECTIVE Health Care Decision (hx) 10/22/2017 AD ESPINO DIRECTIVE Health Care Decision (hx) 10/22/2017 AD ESPINO DIRECTIVE Health Care Decision (hx) 10/22/2017 AD ESPINO DIRECTIVE Care Teams Executive Director Sheltered Workshop Relationship Specialty Start Date End Date Floyd Mark MD [address] [place] [address] PCP - General 03/12/22
--- OUTSIDE RECORDS SUMMARY | 2025-02-28 16:10 | XMS_ITS ---
Author Name [facility] Organization Unknown Encounters Encounter Type Encounter Reason Primary Diagnosis Location Date Ambulatory Contact with and (suspected) exposure to covid-19 [facility] 09/18/2021 Care Team Organization Name Specialty Phone Email Start Date End Da te [facility] Primary Care 03/04/2023 12/22/2023 [facility] Salma Wilson MD Primary Care 03/12/2022 12/22/2023 [place] 09/18/2021 12/22/2023 [place] 09/18/2021 09/18/2021
--- OUTSIDE RECORDS SUMMARY | 2025-02-28 16:10 | XMS_ITS | Encounter Summary ---
Author Organization [facility] Address [address] [place] [address] Care Team Providers Care Roll Cutter Name Role Phone Floyd Mark MD Primary Care Provider Reason for Visit * Reason Onset Date Comments Error 02/10/2025 Encounter Details Date Type Department Care Team ([facility] st Contact Info) Description 02/10/2025 Telephone Adult Medicine [facility] [address] [place] [address] Floyd Mark MD [address] [place] [address] Social History Tobacco Use Types Packs/Day Years Used Date Smoking Tobacco: Some Days Cigarettes 0.3 25.8 Started: 12/24/1991; Last attempted to quit: 10/03/2017 Smokeless Tobacco: Never Alcohol Use Standard Drinks/Week Comments Yes 0 [...] care for your loved ones. For example, early childhood education worker or elderly care for an older [...] Orientation Straight 10/11/2024 3: 17 PM EDT documented as of this encounter Plan of Treatment Upcoming Encounters Date Type Department Care Team (Late st Contact Info) Description 03/08/2025 2:30 PM EST Office Visit Adult [address] [place], [place] [phone] Darling Brown PA [address] [place], [place] 03/11/2025 8:00 AM EST Appointment [facility] [address] [place] [address] Marques Burgos DO [address] [place] [address] Scheduled Procedures Name Priority Associated Diagnoses Date/Ti me ARTHRODESIS SUBTALAR Posterior tibial tendon dysfunction (PTTD) of right lower extremity Arthritis of right ankle documented as of this encounter Goals Goal Patient Goal Type Associated Problems Recent Progress Patient-Stated? Author be ready for surgery General Yes Chidi Cherry, PT STG for PT eval 10/11/24 General No Chidi Cherry, PT Note: Pt will be able to demonstrate safe proper use of a AD in NWB locomotion and transfers Autogenerated Goal Care Plan Autogenerated Problem No Allen Berman documented as of this encounter Visit Diagnoses Not on filedocumented in this encounter Additional Health Concerns Active Problems Noted Date Diagnosed Date Autogenerated Problem 02/10/2025 Assessment Noted Time PHQ-9 Depression Total Score: 0 12/01/19 25 10:05 AM EDT documented as of this encounter Care Teams Roll Cutter Relationship Specialty Start Date End Date Floyd Mark MD [address] [place], [place] PCP - General 03/12/22 documented as of this encounter
[2025-03-08 18:09] VITALS: BMI 27.1
== END 2025-02-28 15:05 | disposition home or self-care (01) ==
LOC: HO.ENCR 12:45
PROVIDERS: PCP Internal Medicine; Visit Provider Dietitian, Registered
DX: E11.9 Type 2 diabetes mellitus without complications (principal)

== ENCOUNTER → 2025-02-28 12:44 | Outpatient (BNVA) | payer OTHER, SELFPAY | PROVIDERS: PCP Internal Medicine; Visit Provider Dietitian, Registered | DX: E11.9 Type 2 diabetes mellitus without complications (principal) | CPT/HCPCS: 97802 ==